=== PATIENT | female | born 1975 | race Caucasian/White ===

== ENCOUNTER 2017-06-15 22:59 | Emergency (ER) | payer OTHER, SELFPAY ==
[2017-06-16 00:16] LABS: Absolute Lymphocytes (CBC) 3.1 K/uL (0.7-4.9); Absolute Monocytes 0.9 K/uL (0.1-1.3); Absolute Neutrophil 6.5 K/uL (1.8-8.0); Basophils % 0.4 % (0-1.3); Eosinophils % 2.5 % (0-4.4); Hematocrit 43.4 % (36.0-45.0); Lymphocytes % 28.9 % (15.3-44.8); MCH 29.9 pg (27.0-35.0); MCV 86.7 fL (80-100); MPV 9.2 fL (7.6-11.3); Monocytes % 8.2 % (3.3-12.3); RBC Red Blood Cell Count 5.01 M/uL (3.86-4.86)
[2017-06-16 00:22] LABS: Protime INR 1.1
[2017-06-16 00:27] LABS: Bicarbonate 23 mEq/L (21-31); Glucose Level 273 mg/dL (65-120); Potassium 3.7 mEq/L (3.6-5.0); Sodium Level 136 mEq/L (135-145)
[2017-06-16 00:33] LABS: ALT/SGPT 13 IU/L (10-60); AST/SGOT 14 IU/L (10-42); Albumin 4.3 g/dL (3.2-5.5); Alkaline Phosphatase 84 IU/L (42-121); BUN Blood Urea Nitrogen 10 mg/dL (6-20); Bilirubin Direct < 0.1 mg/dL (0-0.2); Bilirubin Total 0.4 mg/dL (0.3-1.2); Protein, Total 7.8 g/dL (6.0-8.3)
[2017-06-16 00:36] LABS: Alcohol Serum/Plasma < 10 mg/dl; Salicylates Level < 4.0 mg/dl (<30)
[2017-06-16 00:47] LABS: Barbiturates NEGATIVE; Benzodiazepines NEGATIVE; Cocaine NEGATIVE; METHAMPHETAM NEGATIVE; Opiates NEGATIVE; Phencyclidine NEGATIVE; THC Cannibis NEGATIVE
[2017-06-16 01:11] LABS: Urine Blood NEGATIVE (NEG); Urine Glucose 1+ (NEG); Urine Protein NEGATIVE (NEG); Urine Specific Gravity 1.025 (1.005-1.030)
--- NOTE | 2017-06-16 07:35 | EKG ---
Test Date: 2017-06-16 Test Time: 00:11:26 [place]: FUENTES MEASUREMENT RESULTS: Intervals: Rate: 70 AL: 128 QRSD: 84 QT: 418 QTc: 451 [place]: P: 27 AL: 128 QRS: 67 T: 44 INTERPRETIVE STATEMENTS: Normal sinus rhythm Normal ECG No previous ECG available for comparison Electronically Signed On 06-16-17 07:34:45 CDT by Kenny Gutierrez
--- NOTE | 2017-06-16 11:32 | ER ---
Nurse's Notes [facility] Name: Britt Woods Age: 42 yrs Sex: Female : 1975 Arrival Date: 06/15/2017 Time: 23:04 Bed 14 Private MD: Diagnosis: Anxiety disorder, unspecified;Suicidal ideations;Major depressive disorder, recurrent Presentation: 06/15 23:23 Presenting complaint: Patient states: "I been dealing with the of a son and also ao had a history of depression. I took and extra dose of my Keppra medications. I run out of my medications and I haven't been able to get more medications. I just need help getting my medications. Transition of care: patient was not received from another setting of care. Onset of symptoms is unknown. Care prior to arrival: None. 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 - Social history:: Smoking status: Patient uses tobacco products, smokes one pack cigarettes per day. Patient/guardian denies using alcohol, but has a distant history of alcohol abuse, street drugs, but used to use street drugs. - Family history:: not pertinent. - Hospitalizations: : No recent hospitalization is reported. Screenin/04 00:35 Abuse screen: Denies threats or abuse. Denies injuries from another. Nutritional bs1 screening: No deficits noted. Tuberculosis screening: No symptoms or risk factors identified. Fall Risk None identified. Assessment: 06/15 23:25 General: Appears uncomfortable, unkempt, Behavior is cooperative, anxious. Pain: Denies bs1 pain. 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 Gait is steady, Speech is normal, Facial symmetry appears normal, Pupils are PERRLA. Cardiovascular: Denies chest pain, shortness of breath, Heart tones S1 S2 present Capillary refill < 3 seconds Patient's skin is warm and dry. Respiratory: Airway is patent Trachea midline Respiratory effort is even, unlabored, Respiratory pattern is regular, symmetrical, Breath sounds are clear bilaterally. GI: No deficits noted. No signs and/or symptoms were reported involving the gastrointestinal system. : No deficits noted. No signs and/or symptoms were reported regarding the genitourinary system. EENT: No deficits noted. No signs and/or symptoms were reported regarding the EENT system. Derm: No deficits noted. No signs and/or symptoms reported regarding the dermatologic system. Musculoskeletal: Circulation, motion, and sensation intact. Capillary refill < 3 seconds, Range of motion: intact in all extremities. 06/16 00:25 Reassessment: No changes from previously documented assessment. Patient and/or family bs1 updated on plan of care and expected duration. Pain level reassessed. Patient is alert, oriented x 3, equal unlabored respirations, skin warm/dry/pink. 01:25 Reassessment: Patient appears in no apparent distress at this time. No changes from bs1 previously documented assessment. Patient and/or family updated on plan of care and expected duration. Pain level reassessed. Patient is alert, oriented x 3, equal unlabored respirations, skin warm/dry/pink. 02:25 Reassessment: No changes from previously documented assessment. Patient and/or family bs1 updated on plan of care and expected duration. Pain level reassessed. Patient is alert, oriented x 3, equal unlabored respirations, skin warm/dry/pink. 03:25 Reassessment: Patient appears in no apparent distress at this time. No changes from bs1 previously documented assessment. Patient and/or family updated on plan of care and expected duration. Pain level reassessed. Patient is alert, oriented x 3, equal unlabored respirations, skin warm/dry/pink. patient sleeping. 04:25 Reassessment: Patient appears in no apparent distress at this time. No changes from bs1 previously documented assessment. Patient and/or family updated on plan of care and expected duration. Pain level reassessed. Patient is alert, oriented x 3, equal unlabored respirations, skin warm/dry/pink. Patient resting in bed, eugene, Tech at bedside. 05:25 Reassessment: Patient appears in no apparent distress at this time. No changes from bs1 previously documented assessment. Patient is alert, oriented x 3, equal unlabored respirations, skin warm/dry/pink. 06:25 Reassessment: Patient appears in no apparent distress at this time. No changes from bs1 previously documented assessment. Patient and/or family updated on plan of care and expected duration. Pain level reassessed. Patient is alert, oriented x 3, equal unlabored respirations, skin warm/dry/pink. 07:00 Reassessment: Pt laying in bed with eyes closed, respiration even and unlabored, no jl7 signs of distress noted. 08:00 Reassessment: No changes from previously documented assessment. [facility] 09:00 Reassessment: Pt sitting up in bed eating breakfast. Pt denies suicidal ideation at [facility] this time. Pt states "I had a bad night but I feel better." Provider notified. Patient states feeling better. 09:56 Reassessment: No changes from previously documented assessment. Patient and/or family [facility] updated on plan of care and expected duration. Pain level reassessed. Patient is alert, oriented x 3, equal unlabored respirations, skin warm/dry/pink. Pt sitting in bed, pt smiling and talking with staff. 11:00 Reassessment: Patient and/or family updated on plan of care and expected duration. Pain jl7 level reassessed. Patient is alert, oriented x 3, equal unlabored respirations, skin warm/dry/pink. Family at bedside. 11:20 Reassessment: [facility] at bedside. [facility] 11:27 Reassessment: Dr. White at bedside. [facility] Psych: 06/15 23:25 Subjective: Patient's mood is sad, irritable, hopeless, Delusions are denied, bs1 Hallucinations are denied Having thoughts of suicide. Denies suicidal plan. Objective: Patient is cooperative, using poor eye contact, Speech is normal, soft, Affect is flat. Interventions: Removed personal items and placed in bag. Patient placed in hospital gown. Searched person for dangerous items. Urine collected and sent for urine drug test. Commitment: Patient will be a voluntary commitment. 23:25 Suicide Risk Assessment: Sad Person Scale: Sex of patient: Female: Score 0 points. Age bs1 of patient: Score 0 point if patient falls outside of specified age parameters. Depression: Score 1 point if signs of depression are present. Previous Attempt: Score 0 point if patient has not previously attempted suicide. Substance Abuse: Score 1 point if patient abuses alcohol or drugs. Rational Thinking: Score 1 point if patient is lacking rational thinking. Social Support: Score 0 if social support is present/available. Organized Plan: Score 0 if patient did not have an organized plan in place. Relationship: Score 0 point if patient has a spouse or domestic partner. Chronic Sickness: Score 0 point if patient does not have a chronic illness, debilitating, or severe disorder. TOTAL POINTS: If total points are 3-4, proposed clinical action is close follow-up/consider hospitalization. 23:25 Safety Checks: Personal items have been removed. Door is open. bs1 23:25 Patient uses tobacco 1/2 pack. bs1 Vital Signs: 23:30 BP 125 / 80; Pulse 87; Resp 16; Temp 98.8(O); Pulse Ox 98% on R/A; Weight 73.03 kg (R); ao Height 5 ft. 3 in. (160.02 cm); Pain 5/10; 06/16 03:00 BP 125 / 78; Pulse 74; Resp 16; Pulse Ox 98% on R/A; Pain 0/10; bs1 09:03 BP 113 / 64; Pulse 75; Resp 18 S; Temp 98.9(O); Pulse Ox 94% on R/A; jl7 06/15 23:30 Body Mass Index 28.52 (73.03 kg, 160.02 cm) ao ED Course: 06/15 23:04 Patient arrived in ED. al2 23:26 Triage completed. ao 23:31 Arm band placed on right wrist. Patient placed in an exam room, in a wheelchair, on ao manager cardiac cath, Patient notified of wait time. 23:34 Adolfo Rahman MD is Attending Physician. rn 23:44 Sal Meza RN is Primary Nurse. bp 23:45 Safety Checks: Personal items have been removed The door is open or patient has been bs1 placed in a hallway bed/chair. A family member and/or friend is present and encouraged to stay. 23:55 Missed attempt(s): 20 gauge in right antecubital area. bs1 06/16 00:00 Safety Checks: Personal items have been removed The door is open or patient has been bs1 placed in a hallway bed/chair. A family member and/or friend is present and encouraged to stay. 00:00 Inserted saline lock: 22 gauge in left hand, using aseptic technique. By Andrew Veloz bs1 Missed attempt(s): 22 gauge in right forearm. 00:15 Safety Checks: Personal items have been removed The door is open or patient has been bs1 placed in a hallway bed/chair. A family member and/or friend is present and encouraged to stay. 00:30 Safety Checks: Personal items have been removed The door is open or patient has been bs1 placed in a hallway bed/chair. A family member and/or friend is present and encouraged to stay. 00:41 Patient has correct armband on for positive identification. Placed in gown. Bed in low bs1 position. Call light in reach. Side rails up X 1. Sitter at bedside. 00:45 Safety Checks: Personal items have been removed The door is open or patient has been bs1 placed in a hallway bed/chair. A family member and/or friend is present and encouraged to stay. 01:00 Safety Checks: Personal items have been removed The door is open or patient has been bs1 placed in a hallway bed/chair. A family member and/or friend is present and encouraged to stay. 01:15 Safety Checks: Personal items have been removed The door is open or patient has been bs1 placed in a hallway bed/chair. A family member and/or friend is present and encouraged to stay. 01:30 Safety Checks: Personal items have been removed The door is open or patient has been bs1 placed in a hallway bed/chair. A family member and/or friend is present and encouraged to stay. 01:45 Safety Checks: Personal items have been removed The door is open or patient has been bs1 placed in a hallway bed/chair. A family member and/or friend is present and encouraged to stay. 02:00 Safety Checks: Personal items have been removed The door is open or patient has been bs1 placed in a hallway bed/chair. A family member and/or friend is present and encouraged to stay. 02:15 Safety Checks: Personal items have been removed The door is open or patient has been bs1 placed in a hallway bed/chair. A family member and/or friend is present and encouraged to stay. 02:30 Safety Checks: Personal items have been removed The door is open or patient has been bs1 placed in a hallway bed/chair. A family member and/or friend is present and encouraged to stay. 02:45 Safety Checks: Personal items have been removed The door is open or patient has been bs1 placed in a hallway bed/chair. A family member and/or friend is present and encouraged to stay. 03:00 Safety Checks: Personal items have been removed The door is open or patient has been bs1 placed in a hallway bed/chair. A family member and/or friend is present and encouraged to stay. 03:15 Safety Checks: Personal items have been removed The door is open or patient has been bs1 placed in a hallway bed/chair. A family member and/or friend is present and encouraged to stay. 03:30 Safety Checks: Personal items have been removed The door is open or patient has been bs1 placed in a hallway bed/chair. A family member and/or friend is present and encouraged to stay. 03:45 Safety Checks: Personal items have been removed The door is open or patient has been bs1 placed in a hallway bed/chair. A family member and/or friend is present and encouraged to stay. 04:00 Safety Checks: Personal items have been removed The door is open or patient has been bp placed in a hallway bed/chair. There are no family/friend visitors at this time. 04:15 Safety Checks: Personal items have been removed The door is open or patient has been bp placed in a hallway bed/chair. There are no family/friend visitors at this time. 04:30 Safety Checks: Personal items have been removed The door is open or patient has been bp placed in a hallway bed/chair. There are no family/friend visitors at this time. 04:45 Safety Checks: Personal items have been removed The door is open or patient has been bp placed in a hallway bed/chair. There are no family/friend visitors at this time. 05:00 Safety Checks: Personal items have been removed The door is open or patient has been bs1 placed in a hallway bed/chair. Safety Checks: Personal items have been removed The door is open or patient has been placed in a hallway bed/chair. There are no family/friend visitors at this time. 05:15 Safety Checks: Personal items have been removed The door is open or patient has been bs1 placed in a hallway bed/chair. There are no family/friend visitors at this time. 05:30 Safety Checks: Personal items have been removed The door is open or patient has been bs1 placed in a hallway bed/chair. There are no family/friend visitors at this time. 05:45 Safety Checks: Personal items have been removed The door is open or patient has been bs1 placed in a hallway bed/chair. There are no family/friend visitors at this time. 06:00 Safety Checks: Personal items have been removed The door is open or patient has been bs1 placed in a hallway bed/chair. There are no family/friend visitors at this time. 06:15 Safety Checks: Personal items have been removed The door is open or patient has been bs1 placed in a hallway bed/chair. There are no family/friend visitors at this time. 06:30 Safety Checks: Personal items have been removed The door is open or patient has been bs1 placed in a hallway bed/chair. There are no family/friend visitors at this time. 06:45 Safety Checks: Personal items have been removed The door is open or patient has been bs1 placed in a hallway bed/chair. There are no family/friend visitors at this time. 07:00 Safety Checks: Personal items have been removed The door is open or patient has been bs1 placed in a hallway bed/chair. There are no family/friend visitors at this time. 07:00 Report given to JESUS ALBERTO Ziegler. bs1 07:15 Safety Checks: Personal items have been removed The door is open or patient has been jl7 placed in a hallway bed/chair. There are no family/friend visitors at this time. 07:20 Primary Nurse role handed off by Sal Meza RN jl7 07:20 Toney Craig RN is Primary Nurse. jl7 07:30 Safety Checks: Personal items have been removed The door is open or patient has been jl7 placed in a hallway bed/chair. There are no family/friend visitors at this time. 07:45 Safety Checks: Personal items have been removed The door is open or patient has been jl7 placed in a hallway bed/chair. There are no family/friend visitors at this time. 08:00 Safety Checks: Personal items have been removed The door is open or patient has been jl7 placed in a hallway bed/chair. There are no family/friend visitors at this time. 08:15 Safety Checks: Personal items have been removed The door is open or patient has been jl7 placed in a hallway bed/chair. There are no family/friend visitors at this time. 08:30 Safety Checks: Personal items have been removed The door is open or patient has been jl7 placed in a hallway bed/chair. There are no family/friend visitors at this time. 08:45 Safety Checks: Personal items have been removed The door is open or patient has been jl7 placed in a hallway bed/chair. There are no family/friend visitors at this time. 09:00 Safety Checks: Personal items have been removed The door is open or patient has been jl7 placed in a hallway bed/chair. There are no family/friend visitors at this time. 09:15 Safety Checks: Personal items have been removed The door is open or patient has been jl7 placed in a hallway bed/chair. There are no family/friend visitors at this time. 09:30 Safety Checks: Personal items have been removed The door is open or patient has been jl7 placed in a hallway bed/chair. There are no family/friend visitors at this time. 09:45 Safety Checks: Personal items have been removed The door is open or patient has been jl7 placed in a hallway bed/chair. There are no family/friend visitors at this time. 10:00 Safety Checks: Personal items have been removed The door is open or patient has been jl7 placed in a hallway bed/chair. There are no family/friend visitors at this time. 10:15 Safety Checks: Personal items have been removed The door is open or patient has been jl7 placed in a hallway bed/chair. A family member and/or friend is present and encouraged to stay. 10:30 Safety Checks: Personal items have been removed The door is open or patient has been jl7 placed in a hallway bed/chair. A family member and/or friend is present and encouraged to stay. 10:45 Safety Checks: Personal items have been removed The door is open or patient has been jl7 placed in a hallway bed/chair. A family member and/or friend is present and encouraged to stay. 11:00 Safety Checks: Personal items have been removed The door is open or patient has been jl7 placed in a hallway bed/chair. A family member and/or friend is present and encouraged to stay. 11:15 Safety Checks: Personal items have been removed The door is open or patient has been jl7 placed in a hallway bed/chair. A family member and/or friend is present and encouraged to stay. 11:30 Safety Checks: Personal items have been removed The door is open or patient has been jl7 placed in a hallway bed/chair. A family member and/or friend is present and encouraged to stay. 11:35 Attending Physician role handed off by Adolfo Rahman MD [facility] 11:35 Luis White MD is Attending Physician. [facility] 11:40 No provider procedures requiring assistance completed. IV discontinued, intact, jl7 bleeding controlled, No redness/swelling at site. Pressure dressing applied. Administered Medications: No medications were administered Outcome: 11:31 Discharge ordered by . [facility] 11:40 Discharged to home ambulatory, with family. jl7 11:40 Condition: stable 11:40 Discharge instructions given to patient, family, Instructed on discharge instructions, follow up and referral plans. Demonstrated understanding of instructions, follow-up care. 11:46 Patient left the ED. jl7 Signatures: Luis White MD MD cha Nieto, Roman, MD MD rn Ortiz, Alex RN Toney Cruz RN RN jl7 Sal Meza, JESUS ALBERTO RN Jackie New, JESUS ALBERTO RN bs1 Audra Corcoran Corrections: (The following items were deleted from the chart) 09:58 09:00 Reassessment: Pt sitting up in bed eating breakfast. Pt denies suicidal ideation jl7 at this time. Pt states "I had a bad night but I feel better." Patient states feeling better. jl7 11:38 11:20 Reassessment: Patient and/or family updated on plan of care and expected jl7 duration. Pain level reassessed. Patient is alert, oriented x 3, equal unlabored respirations, skin warm/dry/pink. Family at bedside jl7
--- NOTE | 2017-06-16 11:32 | EDPHYS ---
Physician Documentation [facility] Name: Britt Woods Age: 42 yrs Sex: Female : 1975 Arrival Date: 06/15/2017 Time: 23:04 Bed 14 Private MD: ED Physician Luis White HPI: 06/15 23:45 This 42 yrs old Female presents to ER via Ambulatory with complaints of rn Anxiety, Suicidal Ideation. 23:45 The patient presents to the emergency department with anxiety, depression, suicide rn ideation, and the patient has a plan, to overdose with medications. Onset: The symptoms/episode began/occurred at an unknown time. Severity of symptoms: At their worst the symptoms were moderate in the emergency department the symptoms are unchanged. The patient has experienced similar episodes in the past. Reports suicidal ideation, took 2 extra keppra but didn't have any other medication, doesn't feel safe going home, states is going to hurt herself, no homicidal ideation, previous attempt with overdose on dilantin. . 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 - Social history:: Smoking status: Patient uses tobacco products, smokes one pack cigarettes per day. Patient/guardian denies using alcohol, but has a distant history of alcohol abuse, street drugs, but used to use street drugs. - Family history:: not pertinent. - Hospitalizations: : No recent hospitalization is reported. ROS: 23:45 Constitutional: Negative for fever, chills, and weight loss, Eyes: Negative for injury, rn pain, redness, and discharge, Neck: Negative for injury, pain, and swelling, Cardiovascular: Negative for chest pain, palpitations, and edema, Respiratory: Negative for shortness of breath, cough, wheezing, and pleuritic chest pain, Abdomen/GI: Negative for abdominal pain, nausea, vomiting, diarrhea, and constipation, Back: Negative for injury and pain, MS/Extremity: Negative for injury and deformity, Skin: Negative for injury, rash, and discoloration. Exam: 23:45 Constitutional: This is a well developed, well nourished patient who is awake, alert, rn and in no acute distress. Head/Face: Normocephalic, atraumatic. Eyes: Pupils equal round and reactive to light, extra-ocular motions intact. Lids and lashes normal. Conjunctiva and sclera are non-icteric and not injected. Cornea within normal limits. Periorbital areas with no swelling, redness, or edema. Neck: Trachea midline, no thyromegaly or masses palpated, and no cervical lymphadenopathy. Supple, full range of motion without nuchal rigidity, or vertebral point tenderness. No Meningismus. Cardiovascular: Regular rate and rhythm with a normal S1 and S2. No gallops, murmurs, or rubs. Normal PMI, no JVD. No pulse deficits. Respiratory: Lungs have equal breath sounds bilaterally, clear to auscultation and percussion. No rales, rhonchi or wheezes noted. No increased work of breathing, no retractions or nasal flaring. Abdomen/GI: Soft, non-tender, with normal bowel sounds. No distension or tympany. No guarding or rebound. No evidence of tenderness throughout. MS/ Extremity: Pulses equal, no cyanosis. Neurovascular intact. Full, normal range of motion. Equal circumference. Neuro: Awake and alert, GCS 15, oriented to person, place, time, and situation. Cranial nerves II-XII grossly intact. Motor strength 5/5 in all extremities. Sensory grossly intact. Cerebellar exam normal. Normal gait. Vital Signs: 23:30 BP 125 / 80; Pulse 87; Resp 16; Temp 98.8(O); Pulse Ox 98% on R/A; Weight 73.03 kg (R); ao Height 5 ft. 3 in. (160.02 cm); Pain 5/10; 06/16 03:00 BP 125 / 78; Pulse 74; Resp 16; Pulse Ox 98% on R/A; Pain 0/10; bs1 09:03 BP 113 / 64; Pulse 75; Resp 18 S; Temp 98.9(O); Pulse Ox 94% on R/A; jl7 06/15 23:30 Body Mass Index 28.52 (73.03 kg, 160.02 cm) ao MDM: 06/15 23:34 Patient medically screened. rn 06/15 23:43 Order name: Acetaminophen; Complete Time: 01: rn 06/15 23:43 Order name: Basic Metabolic Panel; Complete Time: : rn 06/15 23:43 Order name: CBC with Diff; Complete Time: : rn 06/15 23:43 Order name: ETOH Level; Complete Time: : rn 06/15 23:43 Order name: Hepatic Function; Complete Time: : rn 06/15 23:43 Order name: PT-INR; Complete Time: : rn 06/15 23:43 Order name: Urine Test (obtain specimen); Complete Time: 00:42 rn 06/15 23:43 Order name: Ptt, Activated; Complete Time: : rn 06/15 23:43 Order name: Salicylate; Complete Time: : rn 06/15 23:43 Order name: Urine Drug Screen; Complete Time: : rn 06/15 23:43 Order name: EKG; Complete Time: 23:44 rn 06/16 00:19 Order name: Urine Dipstick--Ancillary (enter results); Complete Time: 01: em1 06/16 00:19 Order name: Urine --Ancillary (enter results); Complete Time: :17 em1 06/16 07:10 Order name: Diet Regular; Complete Time: 07:11 bd 06/15 23:43 Order name: EKG - Nurse/Tech; Complete Time: 00:42 rn 06/15 23:43 Order name: IV Saline Lock; Complete Time: 00:42 rn 06/15 23:43 Order name: Labs collected and sent; Complete Time: 00:42 rn 06/15 23:43 Order name: Urine Dipstick-Ancillary (obtain specimen); Complete Time: 00:42 rn Administered Medications: No medications were administered Disposition: 06/16/17 11:31 Discharged to Home. Impression: Anxiety disorder, unspecified, Suicidal ideations, Major depressive disorder, recurrent. - Condition is Stable. - Discharge Instructions: Depression, Adult, Helping Someone Who is Suicidal, No-harm Safety Contract, Depression, Adult, [id number]. - Medication Reconciliation Form, Thank You Letter, Antibiotic Education, Prescription Opioid Use, SBAR form form. - Follow up: Private Physician; When: 2 - 3 days; Reason: Recheck today's complaints, Continuance of care, Re-evaluation by your physician. - Problem is new. - Symptoms have improved. Signatures: Dispatcher [employer] EDVT Luis White MD MD cha Nieto, Roman, MD MD rn Ortiz, Alex, RN RN Toney Reyes RN RN [id number]
== END 2017-06-16 11:46 | disposition home or self-care (01) ==
LOC: ER 22:59
DX: R45.851 Suicidal ideations (principal); F33.9 Major depressive disorder, recurrent, unspecified; F17.210 Nicotine dependence, cigarettes, uncomplicated; G40.909 Epilepsy, unspecified, not intractable, without status epilepticus; E11.9 Type 2 diabetes mellitus without complications; Z79.4 Long term (current) use of insulin; Z88.0 Allergy status to penicillin; Z88.3 Allergy status to other anti-infective agents; Z88.6 Allergy status to analgesic agent
CPT/HCPCS: 36415; 80048; 80076; 80307; 80320; 80329; 81003; 81025; 85025; 85610; 85730; 93005; 99284